=== PATIENT | female | born 1990 | race Caucasian/White ===

== ENCOUNTER 2024-09-15 20:58 | Emergency (ER) | payer BC ==
[~2024-09-15] VITALS: Ht 160 cm; Wt 61.4 kg
[2024-09-15 21:01] VITALS: TEMP 97.8
[2024-09-15] MEDS ORDERED: CEPH-585 PO (21:31)
[2024-09-15] MEDS: LIDOcaine 1% 30ml preserv. free vial IJ STA (21:32)
[2024-09-15] MEDS: TETanus/Pertussis (Acell)/Diphther VAC/PF (Tdap-Adult) 0.5ml syringe IMVAC ONE (21:43)
[2024-09-15 22:59] VITALS: BP 123/83; PULSE 82; RESP 16; O2SAT 97
== END 2024-09-15 23:01 | disposition home or self-care (01) ==
LOC: ER 20:59
DX: S61.211A Laceration without foreign body of left index finger without damage to nail, initial encounter (principal); X58.XXXA Exposure to other specified factors, initial encounter; Y93.89 Activity, other specified; Y92.89 Other specified places as the place of occurrence of the external cause; Y99.8 Other external cause status
CPT/HCPCS: 12001; 90471; 90715; 99283